=== PATIENT | male | born 1990 | race Caucasian/White ===

== ENCOUNTER 2017-04-20 11:40 | Emergency (ER) | payer OTHER ==
[2017-04-20 13:21] LABS: RED BLOOD COUNT 5.1 M/UL (4.20-5.50); WHITE BLOOD COUNT 7.4 K/UL (4.5-11.0)
[2017-04-20 13:38] LABS: BUN/CREATININE RATIO 11 (0-10)
== END 2017-04-20 15:40 | disposition home or self-care (01) ==
LOC: ER1 11:40
PROVIDERS: Physician Assistant
DX: K21.9 Gastro-esophageal reflux disease without esophagitis (principal); F17.290 Nicotine dependence, other tobacco product, uncomplicated; Z88.2 Allergy status to sulfonamides
CPT/HCPCS: 36415; 74022; 80053; 81001; 83690; 85025; 96374; 99284; C9113

== ENCOUNTER 2021-06-26 12:51 | Emergency (ER) | payer OTHER ==
[~2021-06-26 12:51] MED LIST: BENTYL 10MG CAP10 MG PO; CYCLOBENZAPRINE10 MG PO; IBU800 MG PO; IBUPROFEN600 MG PO; IBUPROFEN800 MG PO; ZOFRAN4 MG PO
== END 2021-06-26 17:05 | disposition home or self-care (01) ==
LOC: ER1 12:51
DX: U07.1 COVID-19 (principal); Z88.2 Allergy status to sulfonamides; F17.220 Nicotine dependence, chewing tobacco, uncomplicated
CPT/HCPCS: 99284; U0002